=== PATIENT | male | born 1955 | race Caucasian/White ===

== ENCOUNTER 2018-05-24 08:38 | Emergency (ER) | payer MEDICARE, OTHER ==
[~2018-05-24] VITALS: Ht 165.1 cm; Wt 71.7 kg
[~2018-05-24 08:38] MED LIST: EZET10TA38; LISI-646 PO
[2018-05-24 08:55] VITALS: BP 119/74
[2018-05-24] MEDS ORDERED: CLINDAMYCIN 600 MG/4 ML VL IM ONE (11:45)
[2018-05-24] MEDS ORDERED: cefTRIAXone SOD 1,000 MG VL IM ONE (11:45)
[2018-05-24] MEDS ORDERED: LIDOCAINE W/ EPINEPHRINE 1 % INJ 30ML ONE (12:08)
== END 2018-05-24 13:03 | disposition home or self-care (01) ==
LOC: ER 08:43
DX: L03.115 Cellulitis of right lower limb (principal); E78.5 Hyperlipidemia, unspecified; I10 Essential (primary) hypertension
CPT/HCPCS: 96372; 99283; J0696; J2001

== ENCOUNTER → 2022-09-16 | Emergency (ER) | payer OTHER ==
[~2022-09-16] VITALS: Ht 165.1 cm; Wt 77.8 kg
[~2022-09-16] MED LIST changes: +ALPR0.5T GT; +ALPRAZolam 0.5 MG TAB PO ONE; +EZET10TA24; -EZET10TA38; -LISI-646 PO; +LISI20TA56 PO
[2022-09-16 17:56] VITALS: BP 142/72
== END | disposition home or self-care (01) ==
LOC: ER 14:48
DX: F41.9 Anxiety disorder, unspecified (principal); I10 Essential (primary) hypertension; E78.5 Hyperlipidemia, unspecified; Z90.49 Acquired absence of other specified parts of digestive tract; Z79.899 Other long term (current) drug therapy